=== PATIENT | male | born 1955 | race Caucasian/White ===

== ENCOUNTER 2021-11-05 08:00 | Inpatient (IN) | payer OTHER ==
[~2021-11-05] VITALS: Ht 162.6 cm; Wt 87.3 kg
[~2021-11-05 08:00] MED LIST: BUPIVACAINE LIPOSOME/PF 1.3%-13.3MG/ML SUSPENSION 20 ML VIAL INJ ONE; RINGERS SOLUTION,LACTATED 1,000 ML IV ONE; TRANEXAMIC ACID 1,000 MG in DEXTROSE 5%-WATER 50 ML IV ONE
[2021-11-05] MEDS ORDERED: RINGERS SOLUTION,LACTATED 1,000 ML IV ONE ×2 (08:30→10:56)
[2021-11-05 08:41] LABS: COVID AG,FIA SOURCE NASOPHARYNGEAL
[2021-11-05] MEDS ORDERED: SODIUM CHLORIDE 0.9% 20 ML ONE (09:26)
[2021-11-05] MEDS ORDERED: BUPIVACAINE HCL/PF 0.5% 30 ML VIAL ONE (09:26)
[2021-11-05] MEDS ORDERED: SODIUM CL IRRIG SOLN BAG 3,000 ML IRRIG ONE (09:41)
[2021-11-05] MEDS ORDERED: VANCOMYCIN HCL 1 GM/VIAL ONE (09:42)
[2021-11-05] MEDS ORDERED: BUPIVACAINE HCL/PF 0.5% 30 ML VIAL ID ONE (10:02)
[2021-11-05] MEDS ORDERED: VANCOMYCIN HCL/D5W 1 GM/200 ML BAG IV ONE (10:02)
[2021-11-05] MEDS ORDERED: BUPIVACAINE LIPOSOME/PF 1.3%-13.3MG/ML SUSPENSION 10 ML VIAL INJ ONE (10:02)
[2021-11-05] MEDS ORDERED: FentaNYL CITRATE PF 100 MCG/2 ML VIAL IVP PRN (10:30)
[2021-11-05] MEDS ORDERED: HYDROmorphone 2 MG/ML VIAL IVP PRN ×2 (10:30)
[2021-11-05] MEDS ORDERED: TRANEXAMIC ACID 1,000 MG/10 ML VIAL ONE (11:06)
[2021-11-05] MEDS ORDERED: DiphenhydrAMINE HCL 50 MG/ML VIAL IVP PRN (11:45)
[2021-11-05] MEDS ORDERED: BISACODYL 10 MG RECTAL RECTAL SUPPOSITORY PR PRN (11:45)
[2021-11-05] MEDS ORDERED: BENZOCAINE/MENTHOL LOZENGE PO PRN (11:45)
[2021-11-05] MEDS ORDERED: MAG HYDROX/AL HYDROX/SIMETH 30 ML SUSP UDCUP PO PRN (11:45)
[2021-11-05] MEDS ORDERED: ONDANSETRON HCL 4 MG/2 ML VIAL IVP PRN (11:45)
[2021-11-05 12:58] VITALS: BP 104/58
[2021-11-05 15:39] VITALS: BP 141/74
[2021-11-05] MEDS: CeFAZolin 2 GM/DEXTROSE 50 ML IV SCH (17:18)
[2021-11-05] MEDS: SODIUM CHLORIDE 0.9% 1,000 ML IV SCH (17:18)
[2021-11-05] MEDS: CYCLOBENZAPRINE HCL 10 MG TABLET PO SCH ×2 (17:20→20:21)
[2021-11-05] MEDS: CELECOXIB 100 MG CAPSULE PO SCH (17:20)
[2021-11-05 20:11] VITALS: BP 155/94
[2021-11-05] MEDS: DOCUSATE SODIUM 100 MG CAPSULE PO SCH (20:20)
[2021-11-05] MEDS: FAMOTIDINE 20 MG TABLET PO SCH (20:21)
[2021-11-06] MEDS: CeFAZolin 2 GM/DEXTROSE 50 ML IV SCH
[2021-11-06 05:02] VITALS: BP 165/93
[2021-11-06] MEDS ORDERED: ONDANSETRON HCL 4 MG/2 ML VIAL IVP ONE (06:35)
[2021-11-06] MEDS ORDERED: EPHEDrine SULFATE 50 MG/ML VIAL IM ONE (06:35)
[2021-11-06] MEDS ORDERED: DEXAMETHASONE SOD PHOS 4 MG/ML VIAL IVP ONE (06:35)
[2021-11-06] MEDS ORDERED: KETAMINE HCL 50 MG/ML 10 ML VIAL IVP ONE (06:35)
[2021-11-06] MEDS ORDERED: MIDAZOLAM HCL 2 MG/2 ML VIAL IVP ONE (06:35)
[2021-11-06] MEDS ORDERED: LIDOCAINE/PF 2% 5 ML VIAL IM ONE (06:35)
[2021-11-06] MEDS ORDERED: PROPOFOL 1% ISO-OSM 1000 MG/100 ML BOTTLE IV ONE (06:35)
[2021-11-06] MEDS ORDERED: FentaNYL CITRATE PF 100 MCG/2 ML VIAL IVP ONE (06:35)
[2021-11-06 07:46] LABS: BASOPHILS % (AUTO) 0.3 % (0.0-2.0); EOSINOPHILS % (AUTO) 0 % (1.0-6.0); HEMATOCRIT 40.1 % (41-53); HEMOGLOBIN 13.8 g/dL (13.5-17.5); LYMPHOCYTES # (AUTO) 1.1 K/uL (1.0-4.8); LYMPHOCYTES % (AUTO) 11.9 % (22.0-44.0); MEAN CORPUSCULAR HEMOGLOBIN 32.9 pg (26.0-34.0); MEAN CORPUSCULAR HGB CONC 34.4 G/dL (31.0-37.0); MEAN CORPUSCULAR VOLUME 95 fL (80-100); MONOCYTES % (AUTO) 10.7 % (2.0-9.0); NEUTROPHILS # (AUTO) 7.3 K/uL (1.8-7.7); NEUTROPHILS % (AUTO) 77.1 % (40.0-70.0); PLATELET COUNT (AUTO) 217 K/uL (150-450); RED BLOOD CELL COUNT(AUTO) 4.21 MIL/uL (4.50-5.90); RED CELL DISTRIBUTION WIDTH 12.4 % (11.5-14.5)
[2021-11-06 07:58] LABS: ANION GAP 13 mmol/L (8-16); CALCIUM, TOTAL 8.5 mg/dL (8.8-10.5); CARBON DIOXIDE 22 mmol/L (22-29); CHLORIDE 100 mmol/L (98-107); CREATININE 1.04 mg/dL (0.60-1.30); GLOMERULAR FILTR. RATE CALC > 60 mL/min (>60); GLUCOSE,RANDOM 137 mg/dL (70-110); POTASSIUM 4.1 mmol/L (3.5-5.1); SODIUM SERUM 135 mmol/L (136-145); UREA NITROGEN, BLOOD 12 mg/dL (7-18)
[2021-11-06 08:44] VITALS: BP 174/104
[2021-11-06] MEDS: FAMOTIDINE 20 MG TABLET PO SCH ×2 (08:44→20:51)
[2021-11-06] MEDS: DOCUSATE SODIUM 100 MG CAPSULE PO SCH ×2 (08:44→20:50)
[2021-11-06] MEDS: ASPIRIN 81 MG CHEWABLE TABLET PO SCH ×2 (08:44→20:50)
[2021-11-06] MEDS: CYCLOBENZAPRINE HCL 10 MG TABLET PO SCH ×3 (08:45→20:51)
[2021-11-06] MEDS: SODIUM CHLORIDE 0.9% 1,000 ML IV SCH ×2 (08:50→20:54)
[2021-11-06] MEDS: CELECOXIB 100 MG CAPSULE PO SCH ×2 (09:00→17:34)
[2021-11-06] MEDS: OXYGEN THERAPY IH SCH ×2 (09:40→20:00)
[2021-11-06] MEDS: OxyCODONE HCL/ACETAMINOPHEN 5-325 MG TABLET PO PRN ×3 (10:03→20:50)
[2021-11-06 16:02] VITALS: BP 181/116
[2021-11-06] MEDS ORDERED: CloNIDine HCL 0.1 MG TABLET PO PRN (16:15)
[2021-11-06] MEDS: LOSARTAN POTASSIUM 50 MG TABLET PO SCH (16:19)
[2021-11-06 17:42] VITALS: BP 198/113
[2021-11-06 18:25] VITALS: BP 158/98
[2021-11-06] MEDS: AmLODIPine BESYLATE 10 MG TABLET PO SCH (18:37)
[2021-11-06 20:22] VITALS: BP 160/103
[2021-11-07] VITALS (8 sets, daily range): BP systolic 116–154; BP diastolic 72–107
[2021-11-07] MEDS: OXYGEN THERAPY IH SCH (08:00)
[2021-11-07] MEDS: AmLODIPine BESYLATE 10 MG TABLET PO SCH (08:22)
[2021-11-07] MEDS: ASPIRIN 81 MG CHEWABLE TABLET PO SCH ×2 (08:22→20:49)
[2021-11-07] MEDS: CYCLOBENZAPRINE HCL 10 MG TABLET PO SCH ×3 (08:22→20:49)
[2021-11-07] MEDS: FAMOTIDINE 20 MG TABLET PO SCH ×2 (08:22→20:48)
[2021-11-07] MEDS: CELECOXIB 100 MG CAPSULE PO SCH ×2 (08:23→17:21)
[2021-11-07] MEDS: LOSARTAN POTASSIUM 50 MG TABLET PO SCH (08:23)
[2021-11-07 09:08] LABS: BASOPHILS % (AUTO) 0.5 % (0.0-2.0); EOSINOPHILS % (AUTO) 2.1 % (1.0-6.0); HEMATOCRIT 38.2 % (41-53); HEMOGLOBIN 12.9 g/dL (13.5-17.5); LYMPHOCYTES # (AUTO) 1.8 K/uL (1.0-4.8); LYMPHOCYTES % (AUTO) 19.5 % (22.0-44.0); MEAN CORPUSCULAR HEMOGLOBIN 32.6 pg (26.0-34.0); MEAN CORPUSCULAR HGB CONC 33.7 G/dL (31.0-37.0); MEAN CORPUSCULAR VOLUME 97 fL (80-100); MONOCYTES # (AUTO) 0.9 K/uL (0.1-1.0); MONOCYTES % (AUTO) 9.6 % (2.0-9.0); NEUTROPHILS # (AUTO) 6.2 K/uL (1.8-7.7); NEUTROPHILS % (AUTO) 68.3 % (40.0-70.0); PLATELET COUNT (AUTO) 180 K/uL (150-450); RED BLOOD CELL COUNT(AUTO) 3.95 MIL/uL (4.50-5.90); RED CELL DISTRIBUTION WIDTH 12.5 % (11.5-14.5)
[2021-11-07] MEDS: DOCUSATE SODIUM 100 MG CAPSULE PO SCH ×2 (09:16→20:49)
[2021-11-07] MEDS ORDERED: FUROSEMIDE 40 MG TABLET PO ONE (10:00)
[2021-11-07] MEDS ORDERED: HydrALAZINE HCL 25 MG TABLET PO ONE (10:00)
[2021-11-07] MEDS: OxyCODONE HCL/ACETAMINOPHEN 5-325 MG TABLET PO PRN ×2 (10:17→20:48)
[2021-11-07] MEDS: ALBUTEROL SULFATE 2.5 MG/0.5 ML NEB SOLUTION NEB PRN ×2 (10:32→17:37)
[2021-11-07 15:35] LABS: COVID AG,FIA SOURCE NASOPHARYNGEAL
[2021-11-07] MEDS: HydrALAZINE HCL 25 MG TABLET PO SCH ×2 (16:09→20:49)
[2021-11-08 04:00] VITALS: BP 129/83
[2021-11-08 07:32] LABS: BASOPHILS % (AUTO) 0.7 % (0.0-2.0); EOSINOPHILS % (AUTO) 4.5 % (1.0-6.0); HEMATOCRIT 35.3 % (41-53); HEMOGLOBIN 12.3 g/dL (13.5-17.5); LYMPHOCYTES # (AUTO) 1.9 K/uL (1.0-4.8); LYMPHOCYTES % (AUTO) 23.2 % (22.0-44.0); MEAN CORPUSCULAR HEMOGLOBIN 33.2 pg (26.0-34.0); MEAN CORPUSCULAR HGB CONC 34.7 G/dL (31.0-37.0); MEAN CORPUSCULAR VOLUME 96 fL (80-100); MONOCYTES % (AUTO) 12.5 % (2.0-9.0); NEUTROPHILS # (AUTO) 4.7 K/uL (1.8-7.7); NEUTROPHILS % (AUTO) 59.1 % (40.0-70.0); PLATELET COUNT (AUTO) 172 K/uL (150-450); RED CELL DISTRIBUTION WIDTH 12.2 % (11.5-14.5)
[2021-11-08] MEDS: FAMOTIDINE 20 MG TABLET PO SCH (08:02)
[2021-11-08] MEDS: CYCLOBENZAPRINE HCL 10 MG TABLET PO SCH ×2 (08:03→16:33)
[2021-11-08] MEDS: ASPIRIN 81 MG CHEWABLE TABLET PO SCH (08:03)
[2021-11-08] MEDS: CELECOXIB 100 MG CAPSULE PO SCH ×2 (08:03→16:33)
[2021-11-08] MEDS: DOCUSATE SODIUM 100 MG CAPSULE PO SCH (08:03)
[2021-11-08] MEDS: AmLODIPine BESYLATE 10 MG TABLET PO SCH (08:03)
[2021-11-08] MEDS: LOSARTAN POTASSIUM 50 MG TABLET PO SCH (08:03)
[2021-11-08] MEDS: HydrALAZINE HCL 25 MG TABLET PO SCH ×2 (08:04→16:33)
[2021-11-08 08:12] VITALS: BP 126/77
[2021-11-08 10:43] VITALS: BP 131/80
[2021-11-08 15:34] VITALS: BP 112/67
[2021-11-08] MEDS ORDERED: ASPI-1450 PO (16:57)
[2021-11-08] MEDS ORDERED: CELE100 PO (16:57)
[2021-11-08] MEDS ORDERED: AMLO-258 PO (16:57)
[2021-11-08] MEDS ORDERED: CYCL10TA17 PO (16:58)
[2021-11-08] MEDS ORDERED: FAMO20 PO (16:58)
[2021-11-08] MEDS ORDERED: DOCU-270 PO (16:58)
[2021-11-08] MEDS ORDERED: HYDR25TA84 PO (16:59)
[2021-11-08] MEDS ORDERED: LOSA-382 PO (17:06)
[2021-11-08] MEDS ORDERED: BENZ1LOZ68 PO (17:07)
[2021-11-08] MEDS ORDERED: AUD NEB (17:07)
[2021-11-08] MEDS ORDERED: CLON0.1T2 PO (17:08)
[2021-11-08] MEDS ORDERED: BISA10SU11 PR (17:08)
[2021-11-08] MEDS ORDERED: DIPH25 PO (17:09)
[2021-11-08] MEDS ORDERED: PERCT PO (17:10)
[2021-11-08] MEDS ORDERED: MAAL30 PO (17:10)
== END 2021-11-08 20:25 | DRG 470 ==
LOC: 6N 08:00 → 4E 15:50
PROVIDERS: ADMIT Orthopaedic Surgery; ATTEND Orthopaedic Surgery
PROC: 0SRD0J9 Replacement of Left Knee Joint with Synthetic Substitute, Cemented, Open Approach (ICD-10-PCS; principal; 2021-11-05 10:03)
DX: M17.12 Unilateral primary osteoarthritis, left knee (principal); I10 Essential (primary) hypertension; Z20.822 Contact with and (suspected) exposure to COVID-19
CPT/HCPCS: 80048; 85025; 87081; 88300; 94640; 97110; 97116; 97162; 97166; 97530; 97535; C9290; G0238; G0378; J0690; J1100; J1170; J2250; J2405; J2704; J3010; J3370; J3490; J7030; J7060; J7120; Q9967